=== PATIENT | male | born 1975 | race Two or more races ===

== ENCOUNTER 2024-09-22 08:03 | Inpatient (IN) | payer MEDICAID, OTHER ==
[~2024-09-22] VITALS: Ht 167.6 cm; Wt 83.0 kg
[2024-09-22 08:06] VITALS: TEMP 97.6
--- NOTE | 2024-09-22 08:54 | ED.PDOC ---
GI ASSESSMENT HPI Comments This is a 49 year old male presenting to the ED with chief complaint of abdominal pain. Patient reports that he has been experiencing abdominal pain with associated dysuria and constipation for the past 3 days. Patient relays that his last bowel movement was 3 days ago. Patient denies any nausea, vomiting, diarrhea, fever, chills, or dizziness. Chief Complaint: Abdominal Pain Time Seen by MD: 08:53 Reviewed Notes: Nurses Notes, Medications, Allergies Allergies: Coded Allergies: NO KNOWN ALLERGIES (Unverified , 09/22/24) Information Source: Patient Mode of Arrival: Ambulatory Timing: Days Duration: Since onset Prehospital treatment: None Quality: Aching Vomitus: None Stool: Impaction Severity: Moderate Recent: None Recent Hx of: None Pain Location: Diffuse Modifying Factors: Nothing Associated sign and symptoms: Constipation, Abdominal Pain Past Medical History PAST MEDICAL HISTORY: Denies Surgical History: Denies all surgeries Family History Family History: Reviewed,noncontributory to illness Social History Smoker: Non-Smoker Alcohol: Occasionally Drugs: Denies Drug Use Lives In: Home Constitutional: denies: chills, diaphoresis, fatigue, fever, malaise, sweats, weakness, others EENTM: denies: blurred vision, double vision, ear bleeding, ear discharge, ear drainage, ear pain, ear ringing, eye pain, eye redness, hearing loss, mouth pain, mouth swelling, nasal discharge, nose bleeding, nose congestion, nose pain, photophobia, tearing, throat pain, throat swelling, voice changes, others Respiratory: denies: cough, hemoptysis, orthopnea, SOB at rest, shortness of breath, SOB with excertion, stridor, wheezing, others Cardiovascular: denies: chest pain, dizzy spells, diaphoresis, Dyspnea on exertion, edema, irregular heart beat, left arm pain, lightheadedness, palpitations, PND, syncope, others Gastrointestinal: reports: abdominal pain, constipated; denies: abdomen distended, blood streaked bowels, diarrhea, dysphagia, difficulty swallowing, hematemesis, melena, nausea, poor appetite, poor fluid intake, rectal bleeding, rectal pain, vomiting, others Genitourinary: reports: dysuria; denies: burning, flank pain, frequency, hematuria, incontinence, penile discharge, penile sore, pain, testicle pain, testicle swelling, urgency, others Neurological: denies: dizziness, fainting, headache, left sided numbness, left sided weakness, numbness, paresthesia, pre-existing deficit, right sided numbness, right sided weakness, seizure, speech problems, tingling, tremors, weakness, others Musculoskeletal: denies: back pain, gout, joint pain, joint swelling, muscle pain, muscle stiffness, neck pain, others Integumetry: denies: bruises, change in color, change in hair/nails, dryness, laceration, lesions, lumps, rash, wounds, others Allergic/Immunocompromised: denies: Difficulty Healing, Frequent Infections, Hives, Itching, others Hematologic/Lymphatic: denies: anemia, blood clots, easy bleeding, easy bruising, swollen glands, others Endocrine: denies: excessive hunger, excessive sweating, excessive thirst, excessive urination, flushing, intolerance to cold, intolerance to heat, unexplained weight gain, unexplained weight loss, others Psychiatric: denies: anxiety, bipolar disorder, depression, hopeless, panic disorder, schizophrenia, sleepless, suicidal, others All Other Systems: Reviewed and Negative Physical Exam General Appearance: Moderate Distress, Normal HEENT: Normal ENT Inspection, Pharynx Normal, TMs Normal Neck: Full Range of Motion, Non-Tender, Normal, Normal Inspection Respiratory: Chest Non-Tender, Lungs Clear, No Accessory Muscle Use, No Respiratory Distress, Normal Breath Sounds Cardiovascular: No Edema, No JVD, No Murmur, No Gallop, Normal Peripheral Pulses, Regular Rate/Rhythm Breast Exam: Deferred Gastrointestinal: Distended, No Organomegaly, Non Tender, No Pulsatile Mass, Normal Bowel Sounds, Soft Genitalia: Deferred Pelvic: Deferred Rectal: Deferred Extremities: No calf tenderness, Normal capillary refill, Normal inspection, Normal range of motion, Non-tender, No pedal edema Musculoskeletal : Apperance: Normal Neurologic: Alert, resolution specialist II-XII nml as Tested, No Motor Deficits, Normal Affect, Normal Mood, No Sensory Deficits Cerebellar Function: Normal Reflexes: Normal Skin: Dry, Normal Color, Warm Peripheral Pulses: 3+ Radial (R), 3+ Radial (L) Lymphatic: No Adenopathy Was a procedure done? Was a procedure done?: No GI differential Dx Differential Diagnosis: Constipation, Diverticular disease, Esophagitis, Gastritis/PUD, Gastroenteritis X-Ray, Labs, Meds, VS Vital Signs Date Time Temp Pulse Resp B/P (MAP) Pulse Ox O2 Delivery O2 Flow Rate FiO2 09/22/24 08:06 97.6 69 15 136/92 97 97.6 Patient alert. Complaining of abdominal pain. On examination abdomen is distended. Vitals stable. Answering questions. No sign of sepsis. Explained to the patient. Continue monitoring. Time of 1ST Reevaluation: 09:52 Reevaluation 1ST: Unchanged Patient Education/Counseling: Diagnosis, Treatment Family Education/Counseling: No Family Present SEPSIS Sepsis Screen Date sepsis recognized/suspect: Sep 22, 2024 Time Sepsis recognized/suspect: 0809 Recent Procedure: No On Antibiotic Therapy: No Respiratory Rate >20: No Heart Rate >90: No Temp<36 C (96.8 F) or >38.3 C: No SBP <90 or MAP <65 mmHG: No New Acute Mental Status Change: No Is the patient on CPAP, BIPAP,: No Physician Orders Complete Blood Count (09/22/24 09:02) Basic Metabolic Panel (09/22/24 09:02) Ct Ab Pel Wo Con-No Oral Or Iv (09/22/24 09:02) Vital Signs Date Time Temp Pulse Resp B/P (MAP) Pulse Ox O2 Delivery O2 Flow Rate FiO2 09/22/24 08:06 97.6 69 15 136/92 97 97.6 Departure 1 Departure Time of Disposition: 09:43 Impression: Primary Impression: Acute abdominal pain Disposition: ADMITTED INPATIENT Admit to: Med Surg Condition: Guarded Critical Care Note Critical Care Time?: No Stability Stability form required: No Heart Score Heart Score: Heart Score Response (Comments) Value History N/A 0 EKG N/A 0 Age N/A 0 Risk Factors N/A 0 Troponin N/A 0 Total 0 I personally scribed for VALERIE TAYLOR MD ([email or web address]) on 09/22/24 at 08:54. Electronically submitted by Anthony Saini ([email or web address]). VALERIE TAYLOR MD Sep 22, 2024 08:54
[2024-09-22 10:26] LABS: Hematocrit 46.6 % (41.0-53.0); Hemoglobin 16.2 g/dL (13.5-17.5); Mean Corpuscular Hemoglobin 32.2 pg (28.0-32.0); Mean Corpuscular Volume 92.8 fL (80.0-100.0); Nucleated Red Blood Cells % 0.1 %
[2024-09-22 10:33] LABS: Chloride 104 mmol/L (98-107); Potassium 4.1 mmol/L (3.5-5.1); Sodium 143 mmol/L (136-145)
[2024-09-22 10:34] LABS: Anion Gap 10 (5-15); Carbon Dioxide 29 mmol/L (20-31)
[2024-09-22 10:35] LABS: Calcium 9.3 mg/dL (8.7-10.4)
[2024-09-22 10:39] LABS: BUN/Creatinine Ratio 16.5 (10.0-20.0); Blood Urea Nitrogen 15 mg/dL (9-23); Glucose 106 mg/dL (74-106)
[2024-09-22] MEDS ORDERED: ONDANSETRON HCL 4 MG/2 ML VIAL IV PRN (14:15)
[2024-09-22] MEDS ORDERED: DOCUSATE SOD 100 MG CAP PO PRN (14:15)
[2024-09-22] MEDS ORDERED: ACETAMINOPHEN 325 MG TAB PO PRN (14:15)
[2024-09-22] MEDS ORDERED: HYDROcodone-ACET 5/325MG TAB PO PRN (14:15)
[2024-09-22 14:45] VITALS: BP 124/85; PULSE 73; RESP 18; O2SAT 98
[2024-09-22] MEDS ORDERED: MORPHINE SULFATE INJ 2 MG/ml SYRG IV PRN (15:45)
[2024-09-22] MEDS ORDERED: NITROGLYCERIN 0.4 MG SL TAB SL PRN (15:45)
[2024-09-22 16:02] LABS: Urine Protein, UAD TRACE (Negative)
--- NOTE | 2024-09-22 16:07 | DVHHP2 ---
History of Present Illness Reason for Visit: Acute abdominal pain History of Present Illness The patient is a 49 year male who denies past medical history presented to [facility] ED with complaint of abdominal pain. Patient reports he has been experiencing acute abdominal pain, rating 7/10 numeric scale, nonradiat ing, associated with nausea, dysuria, constipation for the past 3 days, getting worse today that prompted this visit. Patient was seen and evaluated in the ED, laboratory data shows WBC 11.6, platelets 207, sodium 147, potassium 4.1, BUN 15, creatinine 0.91, glucose 106, calcium 9.3, blood pressure 136/92, heart rate 69, temperature 97.6 F, O2 saturation 97% on room air. Abdomen/pelvis CT results pending. Please see medication orders section in the computer. On my assessment, patient denies chest pain, no headache, no dizziness, no shortness a breath, no abdominal pain, nausea, or vomiting at this moment, no fever, no chills. Patient was admitted for further evaluation and medical management. Past Medical History Denies past medical history Past Surgical History Denies all surgeries Family History Reviewed, noncontributory to the management of this case. Past Social History The patient lives at home, denies smoking, alcohol or illicit drugs abuse. Review of Systems Constitutional: No: Fever, Chills, Sweats, Weakness, Malaise, Other Eyes: No: Pain, Vision change, Conjunctivae inflammation, Eyelid inflammation, Other, Redness ENT: No: Ear pain, Ear discharge, Nose pain, Nose discharge, Nose congestion, Mouth pain, Mouth swelling, Throat pain, Throat swelling, Other Respiratory: No: Cough, Dry, Shortness of breath, SOB with excertion, Wheezing, Hemoptysis, Pleuritic Pain, Sputum, Wheezing, Other Cardiovascular: No: Chest Pain, Palpitations, Orthopnea, Paroxysmal Noc. Dyspnea, Edema, Lt Headedness, Other Gastrointestinal: Nausea, Abdominal Pain; No: Vomiting, Diarrhea, Constipation, Melena, Hematochezia, Other Genitourinary: Dysuria; No Frequency, No Incontinence, No Hematuria, No Retention, No Other Musculoskeletal: No: other, neck pain, shoulder pain, arm pain, back pain, hand pain, leg pain, foot pain Skin: No: Rash, Lesions, Jaundice, Bruising, Other Neurological: No: Weakness, Numbness, Incoordination, Change in speech, Confusion, Seizures, Other Allergies: Coded Allergies: NO KNOWN ALLERGIES (Unverified , 09/22/24) Medications Current Medications Medications Dose Ordered Sig/Carly Route Start Time Stop Time Status Last Admin Dose Admin Sodium Chloride 10 ml Q8HR IV 09/22/24 22:00 Acetaminophen/ Hydrocodone Bitart 1 tab Q4HP PRN PO 09/22/24 14:15 Ondansetron HCl 4 mg Q4HP PRN IV 09/22/24 14:15 Docusate Sodium 100 mg BIDPRN PRN PO 09/22/24 14:15 Acetaminophen 650 mg Q6HP PRN PO 09/22/24 14:15 Exam Vital Signs Vital Signs Date Time Temp Pulse Resp B/P (MAP) Pulse Ox O2 Delivery O2 Flow Rate FiO2 09/22/24 14:45 73 18 124/85 (98) 98 09/22/24 08:06 97.6 97.6 General Appearance: Alert, Oriented X3, Cooperative, No acute distress HEENT: Atraumatic, PERRLA, EOMI, Mucous membr. moist/pink Respiratory: Normal air movement Cardiovascular: Regular rate, Normal S1, Normal S2, No murmurs Abdominal: Normal bowel sounds, Soft, No hepatospenomegaly, No masses, Other (Reports tenderness) Extremities: No clubbing, No cyanosis, No edema, Normal pulses, No tenderness/swelling Skin: No rashes, No breakdown, No significant lesion Neuro: Normal gait, Normal speech, Strength at 5/5 X4 ext, Normal tone, Sensation intact, Cranial nerves 3-12 NL, Reflexes 2+ Psych/Mental Status: Mental status NL, Mood NL Labs/Xrays Labs Test 09/22/24 10:07 Range/Units White Blood Count 11.6 H 4.4-10.8 10^3/uL Red Blood Count 5.03 4.5-5.90 10^6/uL Hemoglobin 16.2 13.5-17.5 g/dL Hematocrit 46.6 41.0-53.0 % Mean Corpuscular Volume 92.8 80.0-100.0 fL Mean Corpuscular Hemoglobin 32.2 H 28.0-32.0 pg Mean Corpuscular Hemoglobin Concent 34.7 32.0-36.0 g/dL Red Cell Distribution Width 13.6 11.8-14.3 % Platelet Count 207 140-450 10^3/uL Mean Platelet Volume 9.1 6.9-10.8 fL Neutrophils (%) (Auto) 76.1 37.0-80.0 % Lymphocytes (%) (Auto) 14.6 10.0-50.0 % Monocytes (%) (Auto) 6.6 0.0-12.0 % Eosinophils (%) (Auto) 2.0 0.0-7.0 % Basophils (%) (Auto) 0.7 0.0-2.0 % Neutrophils # (Auto) 8.8 H 1.6-8.6 10 ^3/uL Lymphocytes # (Auto) 1.7 0.4-5.4 10 ^3/uL Monocytes # (Auto) 0.8 0-1.3 10 ^3/uL Eosinophils # (Auto) 0.2 0-0.8 10 ^3/uL Basophils # (Auto) 0.1 0-0.2 10 ^3/uL Nucleated Red Blood Cells 0.1 % Sodium Level 143 136-145 mmol/L Potassium Level 4.1 3.5-5.1 mmol/L Chloride Level 104 98-107 mmol/L Carbon Dioxide Level 29 20-31 mmol/L Anion Gap 10 5-15 Blood Urea Nitrogen 15 9-23 mg/dL Creatinine 0.91 0.700-1.30 mg/dL Glomerular Filtration Rate Calc 104 >90 mL/min BUN/Creatinine Ratio 16.5 10.0-20.0 Serum Glucose 106 74-106 mg/dL Calcium Level 9.3 8.7-10.4 mg/dL Abdomen/pelvis CT results pending SEPSIS Sepsis Screen Date sepsis recognized/suspect: Sep 22, 2024 Time Sepsis recognized/suspect: 808 Recent Procedure: No On Antibiotic Therapy: No Respiratory Rate >20: No Heart Rate >90: No Temp<36 C (96.8 F) or >38.3 C: No SBP <90 or MAP <65 mmHG: No New Acute Mental Status Change: No Is the patient on CPAP, BIPAP,: No Physician Orders Ct Ab Pel Wo Con-No Oral Or Iv (09/22/24 09:02) Allergies (09/22/24 14:14) Code Status (09/22/24 14:14) Sodium Chloride Lock (Saline Lock Ns) (09/22/24 22:00) Oxygen Per Hour (09/22/24 14:14) Hydrocodone-Acet 5/325mg Tab ([place] 5/32 (09/22/24 14:15) Ondansetron Hcl (Zofran) (09/22/24 14:15) Docusate Sodium Capsule (Colace Capsule) (09/22/24 14:15) Complete Blood Count (09/23/24 04:00) Comprehensive Metabolic Panel (09/23/24 04:00) Condition: Serious (09/22/24 14:14) Acetaminophen Tablet (Tylenol Tablet) (09/22/24 14:15) Clear Liq Diet (09/22/24 Dinner) Bedrest With Bathroom Privileg (09/22/24 14:14) Sequential Compression Device (09/22/24 ) Admit (09/22/24 15:36) Nitroglycerin Sublingual (Ntrostat Subli (09/22/24 15:45) Morphine Sulfate Injection (09/22/24 15:45) Notify Md Of Changes From Base (09/22/24 15:36) Emergency Dysrhythmia Protocol (09/22/24 15:36) Oxygen By Nasal Cannula (09/22/24 15:36) Vital Signs Date Time Temp Pulse Resp B/P (MAP) Pulse Ox O2 Delivery O2 Flow Rate FiO2 09/22/24 14:45 73 18 124/85 (98) 98 09/22/24 08:06 97.6 69 15 136/92 97 97.6 Laboratory Tests Test 09/22/24 10:07 White Blood Count 11.6 10^3/uL (4.4-10.8) H Assessment/Plan Assessment/Plan Acute abdominal pain Leukocytosis, unspecified Plan 1. Admit to med surge unit 2. Breathing treatment 3. Pain control management 4. IV antibiotic management 5. Management of fluids and electrolytes 6. Consultation for hospitalist 7. Diagnostic test abdomen/pelvis CT 8. DVT prophylaxis-on SCDs 9. Repeat labs CBC, CMP in a.m. 10. Home medication reviewed and reconciled 11. Continue with current medical management 12. Treatment plan discussed with patient and RN. Patient verbalized understanding. Plan discussed with: Patient, Other (RN) My Orders Orders - PAM HARDING DNP Procedure Category Date Status Time Allergies PEDRO PABLO 09/22/24 In Process 14:14 Code Status CODE 09/22/24 Transmitted 14:14 Sodium Chloride Lock PHA 09/22/24 In Process (Saline Lock Ns) 22:00 Oxygen Per Hour RT 09/22/24 Transmitted 14:14 Hydrocodone-Acet PHA 09/22/24 In Process 5/325mg Tab ([place] 14:15 Ondansetron Hcl PHA 09/22/24 In Process (Zofran) 14:15 Docusate Sodium PHA 09/22/24 In Process Capsule (Colace 14:15 Complete Blood Count LAB 09/23/24 Verified 04:00 Comprehensive LAB 09/23/24 Verified Metabolic Panel 04:00 Condition: Serious PEDRO PABLO 09/22/24 In Process 14:14 Acetaminophen Tablet PHA 09/22/24 In Process (Tylenol Tablet) 14:15 Clear Liq Diet DIET 09/22/24 Transmitted Dinner Bedrest With Bathroom PEDRO PABLO 09/22/24 In Process Privileg 14:14 Sequential PEDRO PABLO 09/22/24 In Process Compression Device Admit ADMIT 09/22/24 Verified 15:[address] [facility] 09/22/24 Verified Sublingual (Ntrostat 15:[address] [facility] 09/22/24 Verified Injection 15:45 Notify Md Of Changes [facility] 09/22/24 Verified From Base 15:36 Emergency Dysrhythmia [facility] 09/22/24 Verified Protocol 15:36 Oxygen By Nasal RT 09/22/24 Verified Cannula 15:36 Problem List: (1) Acute abdominal pain (2) Leukocytosis, unspecified Date of Service: Sep 22, 2024 Billing Provider: PAM HARDING DNP Common Visit Codes: [id number] INP/OBS CARE (MOD) PAM HARDING DNP Sep 22, 2024 16:07
--- NOTE | 2024-09-22 17:27 | DVH ---
Indication: distended Technique: CT axial images of the abdomen and pelvis are obtained without contrast. Coronal and sagit fran reformats were obtained. Radiation Dose Information: CTDI volume is 12. mGy. Dose-length product is 734 mGy*cm Comparison: None FINDINGS: There is limited interpretation of the abdomen and pelvis without administration of intravenous contr ast. Lung bases demonstrate atelectasis. 4 mm left upper lobe soft tissue nodule. Adrenal glands, spleen, pancreas, liver unremarkable in shape. No CT evidence for cholelithiasis. Nonobstructing right renal calculus measuring 3 mm. Stomach partially distended. Small bowel loops normal in caliber. There is a foreign body in the rectosigmoid measuring 15.1 cm. There is associated bowel wall thicke nora. Moderate volume stool within the colon. Normal appendix. Distal rectal wall thickening and surr ounding stranding / edema. Bladder partially distended. IMPRESSION: Limited evaluation without contrast. Large foreign body in the rectum measuring 15.1 cm. Recommend surgical consultation for retrieval/ma nagement There is associated bowel wall thickening of the rectum with surrounding stranding, likely represent ing proctocolitis secondary to the underlying foreign body. 3 mm nonobstructing right renal calculus. 4 mm left upper lobe soft tissue nodule. Recommend follow-up per Fleischner society criteria. Other findings as described. Critical Result: Large 15.1 cm foreign body in the rectosigmoid colon Findings discussed with Dr Thompson, at 09/22/2024 05:24 PM at the time of interpretation, and acknowl edged receipt and understanding of the findings. Recommend surgical consultation. ..
[2024-09-22] MEDS ORDERED: cefTRIAXone 1GM/50ML D5W 50 ML IV ONE (20:00)
[2024-09-22] MEDS ORDERED: SODIUM CHLOR 0.9% PF (SALINE LOCK) 10ML VIAL/SYR IV SCH (22:00)
[2024-09-23] MEDS ORDERED: cefTRIAXone 1GM/50ML D5W 50 ML IV SCH (09:00)
== END 2024-09-22 22:00 | disposition left against medical advice (07) | DRG 254 ==
LOC: ER 08:03 → OVERFLOW 16:22
PROVIDERS: ADMIT Nurse Practitioner Family; ATTEND Nurse Practitioner Family
DX: T18.5XXA Foreign body in anus and rectum, initial encounter (principal); D72.829 Elevated white blood cell count, unspecified; K59.00 Constipation, unspecified; W44.9XXA Unspecified foreign body entering into or through a natural orifice, initial encounter; Y93.9 Activity, unspecified; Y92.9 Unspecified place or not applicable
CPT/HCPCS: 36415; 74176; 80048; 81001; 85025; G0378

== ENCOUNTER 2024-09-23 07:57 | Inpatient (IN) | payer MEDICAID ==
[~2024-09-23] VITALS: Ht 167.6 cm; Wt 82.0 kg
[2024-09-23 08:27] LABS: Hematocrit 46.6 % (41.0-53.0); Hemoglobin 15.9 g/dL (13.5-17.5); Mean Corpuscular Hemoglobin 31.9 pg (28.0-32.0); Mean Corpuscular Volume 93.1 fL (80.0-100.0); Nucleated Red Blood Cells % 0.1 %
--- NOTE | 2024-09-23 08:28 | ED.PDOC ---
GI ASSESSMENT HPI Comments 49 y/o M, presents to the ED for CC of abdominal pain. Patient states, he has been experiencing diffuse abdominal with associated symptoms of dysuria and constipation onset, x3days. Patient reports, that his LBM was x3days ago. Patient was seen at [facility] yesterday (09/23/24) for SS and was found to have 15.1 cm foreign body in his rectum and a surgical consult was requested; patient left AMA. Patient denies nausea, vomiting, diarrhea, fever, or chills. No other symptoms or modifying factors present at this time. Chief Complaint: Abdominal Pain Time Seen by MD: 08:15 Reviewed Notes: Nurses Notes, Medications, Allergies Allergies: Coded Allergies: NO KNOWN ALLERGIES (Unverified , 09/22/24) Information Source: Patient Mode of Arrival: Ambulatory Timing: Days Duration: Since onset Prehospital treatment: None Severity: Moderate Recent: None Recent Hx of: None Pain Location: Diffuse Modifying Factors: Nothing Associated sign and symptoms: Abdominal Pain Past Medical History PAST MEDICAL HISTORY: Denies Surgical History: Denies all surgeries Family History Family History: Reviewed,noncontributory to illness Social History Smoker: Non-Smoker Alcohol: Occasionally Drugs: Denies Drug Use Lives In: Home Constitutional: denies: chills, diaphoresis, fatigue, fever, malaise, sweats, weakness, others EENTM: denies: blurred vision, double vision, ear bleeding, ear discharge, ear drainage, ear pain, ear ringing, eye pain, eye redness, hearing loss, mouth pain, mouth swelling, nasal discharge, nose bleeding, nose congestion, nose pain, photophobia, tearing, throat pain, throat swelling, voice changes, others Respiratory: denies: cough, hemoptysis, orthopnea, SOB at rest, shortness of breath, SOB with excertion, stridor, wheezing, others Cardiovascular: denies: chest pain, dizzy spells, diaphoresis, Dyspnea on exertion, edema, irregular heart beat, left arm pain, lightheadedness, palpitations, PND, syncope, others Gastrointestinal: reports: abdominal pain, constipated; denies: abdomen distended, blood streaked bowels, diarrhea, dysphagia, difficulty swallowing, hematemesis, melena, nausea, poor appetite, poor fluid intake, rectal bleeding, rectal pain, vomiting, others Genitourinary: reports: dysuria; denies: burning, flank pain, frequency, hematuria, incontinence, penile discharge, penile sore, pain, testicle pain, testicle swelling, urgency, others Neurological: denies: dizziness, fainting, headache, left sided numbness, left sided weakness, numbness, paresthesia, pre-existing deficit, right sided numbness, right sided weakness, seizure, speech problems, tingling, tremors, weakness, others Musculoskeletal: denies: back pain, gout, joint pain, joint swelling, muscle pain, muscle stiffness, neck pain, others Integumetry: denies: bruises, change in color, change in hair/nails, dryness, laceration, lesions, lumps, rash, wounds, others Allergic/Immunocompromised: denies: Difficulty Healing, Frequent Infections, Hives, Itching, others Hematologic/Lymphatic: denies: anemia, blood clots, easy bleeding, easy bruising, swollen glands, others Endocrine: denies: excessive hunger, excessive sweating, excessive thirst, excessive urination, flushing, intolerance to cold, intolerance to heat, unexplained weight gain, unexplained weight loss, others Psychiatric: denies: anxiety, bipolar disorder, depression, hopeless, panic disorder, schizophrenia, sleepless, suicidal, others All Other Systems: Reviewed and Negative Physical Exam General Appearance: Moderate Distress HEENT: Normal ENT Inspection, Pharynx Normal, TMs Normal Neck: Full Range of Motion, Non-Tender, Normal, Normal Inspection Respiratory: Chest Non-Tender, Lungs Clear, No Accessory Muscle Use, No Respir atory Distress, Normal Breath Sounds Cardiovascular: No Edema, No JVD, No Murmur, No Gallop, Normal Peripheral Pulses, Regular Rate/Rhythm Breast Exam: Deferred Gastrointestinal: Diffuse Genitalia: Deferred Pelvic: Deferred Rectal: Deferred Extremities: No calf tenderness, Normal capillary refill, Normal inspection, Normal range of motion, Non-tender, No pedal edema Musculoskeletal : Apperance: Normal Neurologic: Alert, fagoter II-XII nml as Tested, No Motor Deficits, Normal Affect, Normal Mood, No Sensory Deficits Cerebellar Function: Normal Reflexes: Normal Skin: Dry, Normal Color, Warm Peripheral Pulses: 3+ Radial (R), 3+ Radial (L) Lymphatic: No Adenopathy Was a procedure done? Was a procedure done?: No GI differential Dx Differential Diagnosis: Constipation, Diverticular disease, Esophagitis, Gastritis/PUD, Gastroenteritis, Electrolyte Imbalance, Food Poisoning, Bacterial, Viral X-Ray, Labs, Meds, VS Vital Signs Date Time Temp Pulse Resp B/P (MAP) Pulse Ox O2 Delivery O2 Flow Rate FiO2 09/23/24 07:58 98.2 62 18 120/84 95 98.2 Lab Test 09/23/24 08:07 Range/Units White Blood Count 9.3 4.4-10.8 10^3/uL Red Blood Count 5.00 4.5-5.90 10^6/uL Hemoglobin 15.9 13.5-17.5 g/dL Hematocrit 46.6 41.0-53.0 % Mean Corpuscular Volume 93.1 80.0-100.0 fL Mean Corpuscular Hemoglobin 31.9 28.0-32.0 pg Mean Corpuscular Hemoglobin Concent 34.2 32.0-36.0 g/dL Red Cell Distribution Width 13.1 11.8-14.3 % Platelet Count 212 140-450 10^3/uL Mean Platelet Volume 9.2 6.9-10.8 fL Neutrophils (%) (Auto) 73.0 37.0-80.0 % Lymphocytes (%) (Auto) 17.2 10.0-50.0 % Monocytes (%) (Auto) 7.6 0.0-12.0 % Eosinophils (%) (Auto) 1.9 0.0-7.0 % Basophils (%) (Auto) 0.3 0.0-2.0 % Neutrophils # (Auto) 6.8 1.6-8.6 10 ^3/uL Lymphocytes # (Auto) 1.6 0.4-5.4 10 ^3/uL Monocytes # (Auto) 0.7 0-1.3 10 ^3/uL Eosinophils # (Auto) 0.2 0-0.8 10 ^3/uL Basophils # (Auto) 0 0-0.2 10 ^3/uL Nucleated Red Blood Cells 0.1 % Sodium Level 143 136-145 mmol/L Potassium Level 4.0 3.5-5.1 mmol/L Chloride Level 106 98-107 mmol/L Carbon Dioxide Level 27 20-31 mmol/L Anion Gap 10 5-15 Blood Urea Nitrogen 19 9-23 mg/dL Creatinine 0.90 0.700-1.30 mg/dL Glomerular Filtration Rate Calc 105 >90 mL/min BUN/Creatinine Ratio 21.1 H 10.0-20.0 Serum Glucose 104 74-106 mg/dL Calcium Level 9.1 8.7-10.4 mg/dL CT ABD PEL (09/22/24): [place] [id number] Ph: [phone] DIAGNOSTIC IMAGING Diagnostic Imaging Report : [id number] Signed PATIENT: MELANIE JOHNSON ACCT: [id number] UNIT: [id number] : 1975 LOC: OVERFLOW ROOM / BED: [facility]ER / A AGE / SEX: 49 / M ADM STATUS: ADM IN SERVICE 1 ORDERING PHYSICIAN: VALERIE TAYLOR MD PROCEDURE(s): ABPL - CT AB PEL WO CON-NO ORAL OR IV REASON: distended ORDER NUMBER(s): [id number], ACCESSION NUMBER(s): [id number] Indication: distended Technique: CT axial images of the abdomen and pelvis are obtained without contrast. Coronal and sagittal reformats were obtained. Radiation Dose Information: CTDI volume is 12. mGy. Dose-length product is 734 mGy*cm Comparison: None FINDINGS: There is limited interpretation of the abdomen and pelvis without administration of intravenous contrast. Lung bases demonstrate atelectasis. 4 mm left upper lobe soft tissue nodule. Adrenal glands, spleen, pancreas, liver unremarkable in shape. No CT evidence for cholelithiasis. Nonobstructing right renal calculus measuring 3 mm. Stomach partially distended. Small bowel loops normal in caliber. There is a foreign body in the rectosigmoid measuring 15.1 cm. There is associated bowel wall thickening. Moderate volume stool within the colon. Normal appendix. Distal rectal wall thickening and surrounding stranding / edema. Bladder partially distended. IMPRESSION: Limited evaluation without contrast. Large foreign body in the rectum measuring 15.1 cm. Recommend surgical consultation for retrieval/management There is associated bowel wall thickening of the rectum with surrounding stranding, likely representing proctocolitis secondary to the underlying foreign body. 3 mm nonobstructing right renal calculus. 4 mm left upper lobe soft tissue nodule. Recommend follow-up per Fleischner society criteria. Other findings as described. Critical Result: Large 15.1 cm foreign body in the rectosigmoid colon Findings discussed with Dr Taylor, at 09/22/2024 05:24 PM at the time of interpretation, and acknowledged receipt and understanding of the findings. Re commend surgical consultation. .. ATED BY: JUNI TORRES MD DICTATED DATE/TIME: 09/22/241725 SIGNED BY: JUNI TORRES MD SIGNED DATE/TIME: 09/22/241725 CC: Patient alert. Complaining of abdominal pain. Vitals stable. Answering questions. He was seen here yesterday for the same symptom. Left without waiting. CT scan of the abdomen reviewed from yesterday does show foreign body in the rectal sigmoid. Surgical consultation. Establish intravenous access. Was given fluids. Was given morphine. Explained to the patient. Continue to monitor. Time of 1ST Reevaluation: 08:45 Reevaluation 1ST: Unchanged Patient Education/Counseling: Diagnosis, Treatment Family Education/Counseling: No Family Present SEPSIS Sepsis Screen Date sepsis recognized/suspect: Sep 23, 2024 Time Sepsis recognized/suspect: 0758 Recent Procedure: No On Antibiotic Therapy: No Respiratory Rate >20: No Heart Rate >90: No Temp<36 C (96.8 F) or >38.3 C: No SBP <90 or MAP <65 mmHG: No New Acute Mental Status Change: No Is the patient on CPAP, BIPAP,: No Vital Signs Date Time Temp Pulse Resp B/P (MAP) Pulse Ox O2 Delivery O2 Flow Rate FiO2 09/23/24 07:58 98.2 62 18 120/84 95 98.2 Laboratory Tests Test 09/23/24 08:07 White Blood Count 9.3 10^3/uL (4.4-10.8) Departure 1 Departure Time of Disposition: 10:03 Impression: Primary Impression: Acute abdominal pain Additional Impression: Foreign body Disposition: ADMITTED INPATIENT Admit to: Med Surg Condition: Guarded Critical Care Note Critical Care Time?: Yes (90 min-critical care time only) Critical care comment: Foreign body Stability Stability form required: No Heart Score Heart Score: Heart Score Response (Comments) Value History N/A 0 EKG N/A 0 Age N/A 0 Risk Factors N/A 0 Troponin N/A 0 Total 0 I personally scribed for VALERIE TAYLOR MD ([email or web address]) on 09/23/24 at 08:27. Electronically submitted by Olena Bridges ([employer]). I personally scribed for VALERIE TAYLOR MD ([email or web address]) on 09/23/24 at 08:29. Electronically submitted by Olena Bridges ([employer]). I personally scribed for VALERIE TAYLOR MD ([email or web address]) on 09/23/24 at 08:44. Electronically submitted by Olena Bridges ([employer]). VALERIE TAYLOR MD Sep 23, 2024 08:27
[2024-09-23 08:35] LABS: Chloride 106 mmol/L (98-107); Potassium 4.0 mmol/L (3.5-5.1); Sodium 143 mmol/L (136-145)
[2024-09-23 08:36] LABS: Anion Gap 10 (5-15); Calcium 9.1 mg/dL (8.7-10.4); Carbon Dioxide 27 mmol/L (20-31)
[2024-09-23 08:41] LABS: BUN/Creatinine Ratio 21.1 (10.0-20.0); Blood Urea Nitrogen 19 mg/dL (9-23); Glucose 104 mg/dL (74-106)
[2024-09-23 10:55] LABS: INR 0.98 (0.9-1.15); Partial Thromboplastin Time 26.2 SEC (24.5-34.5); Prothrombin Time 10.4 sec (9.3-11.8)
[2024-09-23] MEDS: SODIUM CHLORIDE 0.9% 1,000 ML IV ONE ×2 (12:30→13:35)
[2024-09-23] MEDS: ONDANSETRON HCL 4 MG/2 ML VIAL IV ONE (12:30)
[2024-09-23] MEDS: MORPHINE SULFATE 4 MG/ML SYR/VIAL IV ONE (12:30)
--- NOTE | 2024-09-23 16:03 | DVH ---
CHEST RADIOGRAPH Indication: Pre-Op Technique: Single frontal view of the chest was obtained Comparison: None FINDINGS: Lines and Tubes: None Lungs: No focal consolidation. Pleura: No effusion. No pneumothorax. Cardiomediastinal contours: Borderline cardiomegaly. Bones: No acute osseous abnormality. Nonspecific tubular structure extending from the visualized righ t neck soft tissues through the right upper abdomen. IMPRESSION: No acute cardiopulmonary disease.
[2024-09-23] MEDS ORDERED: DOCUSATE SOD 100 MG CAP PO PRN (17:30)
[2024-09-23] MEDS ORDERED: ACETAMINOPHEN 325 MG TAB PO PRN (17:30)
[2024-09-23] MEDS: FOLIC ACID 1 MG in D5W 5% 50 ML INJ ONE (17:30)
[2024-09-23] MEDS ORDERED: MORPHINE SULFATE INJ 2 MG/ml SYRG IV PRN (17:30)
[2024-09-23] MEDS ORDERED: LORazepam 2MG/ML-1ML VIAL IV PRN (17:30)
[2024-09-23] MEDS ORDERED: HYDROcodone-ACET 5/325MG TAB PO PRN (17:30)
[2024-09-23] MEDS ORDERED: METOCLOPRAMIDE HCL 5MG/ml INJ 2ml VIAL IV PRN (17:30)
[2024-09-23] MEDS ORDERED: ONDANSETRON HCL 4 MG/2 ML VIAL IV PRN (17:30)
--- NOTE | 2024-09-23 17:32 | DVHINCON2 ---
Consultation - Surgical Date Seen: Sep 23, 2024 Referring Physician Referring Physician er Reason for Consultation Rectal foreign body History of Present Illness History of Present Illness 9 y/o M, presents to the ED for CC of abdominal pain. Patient states, he has been experiencing diffuse abdominal with associated symptoms of dysuria and constipation onset, x3days. Patient reports, that his LBM was x3days ago. Patient was seen at [facility] yesterday (09/23/24) for SS and was found to have 15.1 cm foreign body in his rectum patient left AMA. Patient denies nausea, vomiting, diarrhea, fever, or chills. No other symptoms or modifying factors present at this time. Past Medical/Surgical History Past Medical/Surgical History None Family and Social History Family and Social History Smokes occasionally drinks daily. Allergies and medications Allergies: Coded Allergies: NO KNOWN ALLERGIES (Unverified , 09/22/24) Review of systems Review of Systems: HEENT:Normal, CVS:Normal, RESPIRATORY:Normal, GI:Abnormal, :Normal, NEURO:Normal Examination Vital signs Vital Signs Date Time Temp Pulse Resp B/P (MAP) Pulse Ox O2 Delivery O2 Flow Rate FiO2 09/23/24 13:30 98.8 58 14 124/70 (88) 96 98.8 09/23/24 12:20 Room Air* 0 21 Medications Current Medications Medications (Trade) Dose Ordered Sig/Carly Route PRN Reason Start Time Stop Time Status Last Admin Acetaminophen/ Hydrocodone Bitart ([place] 5/325MG Tab) 1 tab Q4HP PRN PO MODERATE PAIN (4-6 PAIN SCALE) 09/23/24 17:30 UNV Ondansetron HCl (Zofran) 4 mg Q4HP PRN IV NAUSEA / VOMITING 09/23/24 17:30 UNV Docusate Sodium (Colace Capsule) 100 mg BIDPRN PRN PO FOR CONSTIPATION 09/23/24 17:30 UNV Acetaminophen (Tylenol Tablet) 650 mg Q6HP PRN PO PAIN SCALE 1-3 OR TEMP>100.4 09/23/24 17:30 UNV Morphine Sulfate 2 mg Q4HPRN PRN IV SEVERE PAIN (7-10 PAIN SCALE) 09/23/24 17:30 UNV Metoclopramide HCl (Reglan Injection) 10 mg Q6HPRN PRN IV NAUSEA / VOMITING 09/23/24 17:30 UNV Laboratory Labs Test 09/23/24 08:07 Range/Units White Blood Count 9.3 4.4-10.8 10^3/uL Red Blood Count 5.00 4.5-5.90 10^6/uL Hemoglobin 15.9 13.5-17.5 g/dL Hematocrit 46.6 41.0-53.0 % Mean Corpuscular Volume 93.1 80.0-100.0 fL Mean Corpuscular Hemoglobin 31.9 28.0-32.0 pg Mean Corpuscular Hemoglobin Concent 34.2 32.0-36.0 g/dL Red Cell Distribution Width 13.1 11.8-14.3 % Platelet Count 212 140-450 10^3/uL Mean Platelet Volume 9.2 6.9-10.8 fL Neutrophils (%) (Auto) 73.0 37.0-80.0 % Lymphocytes (%) (Auto) 17.2 10.0-50.0 % Monocytes (%) (Auto) 7.6 0.0-12.0 % Eosinophils (%) (Auto) 1.9 0.0-7.0 % Basophils (%) (Auto) 0.3 0.0-2.0 % Neutrophils # (Auto) 6.8 1.6-8.6 10 ^3/uL Lymphocytes # (Auto) 1.6 0.4-5.4 10 ^3/uL Monocytes # (Auto) 0.7 0-1.3 10 ^3/uL Eosinophils # (Auto) 0.2 0-0.8 10 ^3/uL Basophils # (Auto) 0 0-0.2 10 ^3/uL Nucleated Red Blood Cells 0.1 % Prothrombin Time 10.4 9.3-11.8 sec Prothrombin Time INR 0.98 0.9-1.15 Activated Partial Thromboplast Time 26.2 24.5-34.5 SEC Sodium Level 143 136-145 mmol/L Potassium Level 4.0 3.5-5.1 mmol/L Chloride Level 106 98-107 mmol/L Carbon Dioxide Level 27 20-31 mmol/L Anion Gap 10 5-15 Blood Urea Nitrogen 19 9-23 mg/dL Creatinine 0.90 0.700-1.30 mg/dL Glomerular Filtration Rate Calc 105 >90 mL/min BUN/Creatinine Ratio 21.1 H 10.0-20.0 Serum Glucose 104 74-106 mg/dL Calcium Level 9.1 8.7-10.4 mg/dL Indication: distended Technique: CT axial images of the abdomen and pelvis are obtained without contrast. Coronal and sagittal reformats were obtained. Radiation Dose Information: CTDI volume is 12. mGy. Dose-length product is 734 mGy*cm Comparison: None FINDINGS: There is limited interpretation of the abdomen and pelvis without administration of intravenous contrast. Lung bases demonstrate atelectasis. 4 mm left upper lobe soft tissue nodule. Adrenal glands, spleen, pancreas, liver unremarkable in shape. No CT evidence for cholelithiasis. Nonobstructing right renal calculus measuring 3 mm. Stomach partially distended. Small bowel loops normal in caliber. There is a foreign body in the rectosigmoid measuring 15.1 cm. There is associated bowel wall thickening. Moderate volume stool within the colon. Normal appendix. Distal rectal wall thickening and surrounding stranding / edema. Bladder partially distended. IMPRESSION: Limited evaluation without contrast. Large foreign body in the rectum measuring 15.1 cm. Recommend surgical consultation for retrieval/management There is associated bowel wall thickening of the rectum with surrounding stranding, likely representing proctocolitis secondary to the underlying foreign body. 3 mm nonobstructing right renal calculus. 4 mm left upper lobe soft tissue nodule. Recommend follow-up per Fleischner soc iety criteria. Other findings as described. Critical Result: Large 15.1 cm foreign body in the rectosigmoid colon Examination: GENERAL:Normal, HEENT:Normal, NECK:Normal, LUNGS:Normal, CVS:Normal, ABDOMEN:Normal, ABDOMEN:Abnormal (Abdominal discomfort suprapubic), MSK:Normal, SKIN:Normal, NEURO:Normal, :Normal Problem List/Assessment/Plan Problems: (1) Foreign body anus/rectum Assessment and Plan Foreign body in the rectum. We will require exam under anesthesia with extraction. Possible exploratory laparotomy. Patient understands the risks benefits of the procedure and is willing to proceed. We will plan on performing today. Plan discussed with Plan discussed with: Patient Visit Coding Surgery Date of Service if different f: Sep 23, 2024 Billing Provider: TRAY KAMARA Jr., MD Surgery Visit Codes: 53225 - INP CONSULT <80 MIN TRAY KAMARA Jr., MD Sep 23, 2024 17:32
--- NOTE | 2024-09-23 17:40 | DVHHP2 ---
History of Present Illness Reason for Visit: Abdominal pain History of Present Illness Antione Gamble is a 49-year-old male with no significant past medical history who came to the ER for abdominal pain. Patient states him and his were having sexual relations on Sunday09/20/2024, where she put a marker in his rectum and was unable to get it out. He states he has tried at home to get it out and has been unsuccessful. He states he can barely fill it with his finger when he tries. He has also tried to have a bowel movement to get it to pass without success. He came to the hospital yesterday, but left AMA after waiting for hours. He has returned today due to the pain and not being able to remove i t. Past Surgical History: None Family History: None Smoke: No ALCOHOL: heavy (3-4 beers/day) Drugs: Marijuana Lives: with Family Domestic Violence: Neg Review of Systems Constitutional: No: Fever, Chills, Sweats, Weakness, Malaise, Other Eyes: No: Pain, Vision change, Conjunctivae inflammation, Eyelid inflammation, Other, Redness ENT: No: Ear pain, Ear discharge, Nose pain, Nose discharge, Nose congestion, Mouth pain, Mouth swelling, Throat pain, Throat swelling, Other Respiratory: No: Cough, Dry, Shortness of breath, SOB with excertion, Wheezing, Hemoptysis, Pleuritic Pain, Sputum, Wheezing, Other Cardiovascular: No: Chest Pain, Palpitations, Orthopnea, Paroxysmal Noc. Dyspnea, Edema, Lt Headedness, Other Gastrointestinal: Abdominal Pain, Constipation, Other (Foreign body anus/rectum, ); No: Nausea, Vomiting, Diarrhea, Melena, Hematochezia Genitourinary: No Dysuria, No Frequency, No Incontinence, No Hematuria, No Retention, No Other Musculoskeletal: No: other, neck pain, shoulder pain, arm pain, back pain, hand pain, leg pain, foot pain Skin: No: Rash, Lesions, Jaundice, Bruising, Other Neurological: No: Weakness, Numbness, Incoordination, Change in speech, Confusion, Seizures, Other Allergies: Coded Allergies: NO KNOWN ALLERGIES (Unverified , 09/22/24) Exam Vital Signs Vital Signs Date Time Temp Pulse Resp B/P (MAP) Pulse Ox O2 Delivery O2 Flow Rate FiO2 09/23/24 13:30 98.8 58 14 124/70 (88) 96 98.8 09/23/24 12:20 Room Air* 0 21 General Appearance: Alert, Oriented X3, Cooperative, moderate distress HEENT: Atraumatic, PERRLA Respiratory: Clear to auscultation, Normal air movement Cardiovascular: Regular rate, Normal S1, Normal S2, No murmurs Abdominal: Normal bowel sounds, Soft, No hepatospenomegaly, Other (rectum pain) Extremities: No clubbing, No cyanosis, No edema, Normal pulses, No tenderness/swelling Skin: No rashes, No breakdown, No significant lesion Neuro: Normal gait, Normal speech, Strength at 5/5 X4 ext, Normal tone Psych/Mental Status: Mental status NL, Mood NL Labs/Xrays Labs Test 09/23/24 08:07 Range/Units White Blood Count 9.3 4.4-10.8 10^3/uL Red Blood Count 5.00 4.5-5.90 10^6/uL Hemoglobin 15.9 13.5-17.5 g/dL Hematocrit 46.6 41.0-53.0 % Mean Corpuscular Volume 93.1 80.0-100.0 fL Mean Corpuscular Hemoglobin 31.9 28.0-32.0 pg Mean Corpuscular Hemoglobin Concent 34.2 32.0-36.0 g/dL Red Cell Distribution Width 13.1 11.8-14.3 % Platelet Count 212 140-450 10^3/uL Mean Platelet Volume 9.2 6.9-10.8 fL Neutrophils (%) (Auto) 73.0 37.0-80.0 % Lymphocytes (%) (Auto) 17.2 10.0-50.0 % Monocytes (%) (Auto) 7.6 0.0-12.0 % Eosinophils (%) (Auto) 1.9 0.0-7.0 % Basophils (%) (Auto) 0.3 0.0-2.0 % Neutrophils # (Auto) 6.8 1.6-8.6 10 ^3/uL Lymphocytes # (Auto) 1.6 0.4-5.4 10 ^3/uL Monocytes # (Auto) 0.7 0-1.3 10 ^3/uL Eosinophils # (Auto) 0.2 0-0.8 10 ^3/uL Basophils # (Auto) 0 0-0.2 10 ^3/uL Nucleated Red Blood Cells 0.1 % Prothrombin Time 10.4 9.3-11.8 sec Prothrombin Time INR 0.98 0.9-1.15 Activated Partial Thromboplast Time 26.2 24.5-34.5 SEC Sodium Level 143 136-145 mmol/L Potassium Level 4.0 3.5-5.1 mmol/L Chloride Level 106 98-107 mmol/L Carbon Dioxide Level 27 20-31 mmol/L Anion Gap 10 5-15 Blood Urea Nitrogen 19 9-23 mg/dL Creatinine 0.90 0.700-1.30 mg/dL Glomerular Filtration Rate Calc 105 >90 mL/min BUN/Creatinine Ratio 21.1 H 10.0-20.0 Serum Glucose 104 74-106 mg/dL Calcium Level 9.1 8.7-10.4 mg/dL CHEST RADIOGRAPH FINDINGS: Lines and Tubes: None Lungs: No focal consolidation. Pleura: No effusion. No pneumothorax. Cardiomediastinal contours: Borderline cardiomegaly. Bones: No acute osseous abnormality. Nonspecific tubular structure extending from the visualized right neck soft tissues through the right upper abdomen. IMPRESSION: No acute cardiopulmonary disease. Technique: CT axial images of the abdomen and pelvis are obtained without contrast. FINDINGS: There is limited interpretation of the abdomen and pelvis without administration of intravenous contrast. Lung bases demonstrate atelectasis. 4 mm left upper lobe soft tissue nodule. Adrenal glands, spleen, pancreas, liver unremarkable in shape. No CT evidence for cholelithiasis. Nonobstructing right renal calculus measuring 3 mm. Stomach partially distended. Small bowel loops normal in caliber. There is a foreign body in the rectosigmoid measuring 15.1 cm. There is associated bowel wall thickening. Moderate volume stool within the colon. Normal appendix. Distal rectal wall thickening and surrounding stranding / edema. Bladder partially distended. IMPRESSION: Limited evaluation without contrast. Large foreign body in the rectum measuring 15.1 cm. Recommend surgical consultation for retrieval/management There is associated bowel wall thickening of the rectum with surrounding stranding, likely representing proctocolitis secondary to the underlying foreign body. 3 mm nonobstructing right renal calculus. 4 mm left upper lobe soft tissue nodule. Recommend follow-up per Fleischner society criteria. Other findings as described. Critical Result: Large 15.1 cm foreign body in the rectosigmoid colon SEPSIS Sepsis Screen Date sepsis recognized/suspect: Sep 23, 2024 Time Sepsis recognized/suspect: 0758 Recent Procedure: No On Antibiotic Therapy: No Respiratory Rate >20: No Heart Rate >90: No Temp<36 C (96.8 F) or >38.3 C: No SBP <90 or MAP <65 mmHG: No New Acute Mental Status Change: No Is the patient on CPAP, BIPAP,: No Physician Orders Chest Xray 1 View (09/23/24 15:29) Admit (09/23/24 17:18) Code Status (09/23/24 17:18) Hydrocodone-Acet 5/325mg Tab ([place] (09/23/24 17:30) Ondansetron Hcl (Zofran) (09/23/24 17:30) Docusate Sodium Capsule (Colace Capsule) (09/23/24 17:30) Complete Blood Count (09/24/24 04:00) Comprehensive Metabolic Panel (09/24/24 04:00) Condition: Serious (09/23/24 17:18) Acetaminophen Tablet (Tylenol Tablet) (09/23/24 17:30) Morphine Sulfate Injection (09/23/24 17:30) Metoclopramide Injection (Reglan Injecti (09/23/24 17:30) * Surgical Consult (09/23/24 17:18) Vital Signs Date Time Temp Pulse Resp B/P (MAP) Pulse Ox O2 Delivery O2 Flow Rate FiO2 09/23/24 13:30 98.8 58 14 124/70 (88) 96 98.8 09/23/24 13:00 58 14 124/70 09/23/24 12:31 98.8 77 14 128/80 (96) 96 98.8 09/23/24 12:30 77 16 128/80 09/23/24 12:20 Room Air* 0 21 Laboratory Tests Test 09/23/24 08:07 White Blood Count 9.3 10^3/uL (4.4-10.8) Medications Medications Dose Ordered Sig/Carly Route Start Time Stop Time Status Last Admin Dose Admin Morphine Sulfate 4 mg ONCE ONCE IV 09/23/24 10:15 09/23/24 10:16 DC 09/23/24 12:30 4 MG Ondansetron HCl 4 mg ONCE ONCE IV 09/23/24 10:15 09/23/24 10:16 DC 09/23/24 12:30 4 MG Sodium Chloride 1,000 ml @ 150 mls/hr Q6H40M ONCE IV 09/23/24 10:15 09/23/24 16:54 DC 09/23/24 13:35 150 MLS/HR Sodium Chloride 1,000 ml @ 1,000 mls/hr Q1H ONCE IV 09/23/24 10:15 09/23/24 11:14 DC 09/23/24 12:30 1,000 MLS/HR Assessment/Plan Assessment/Plan Assessment: Foreign body anus/rectum, Daily ETOH, Plan: Admit to Med-Surg, Surgical consult, IV hydration, NPO, Supplemental vitamins for ETOH dependance, PRN Ativan for possible ETOH withdrawal, Plan discussed with: Patient My Orders Orders - MELVIN DUMONTP Procedure Category Date Status Time Chest Xray 1 View XY 09/23/24 Resulted 15:29 Admit ADMIT 09/23/24 Verified 17:18 Code Status CODE 09/23/24 Verified 17:18 Hydrocodone-Acet PHA 09/23/24 Verified 5/325mg Tab ([place] 17:30 Ondansetron Hcl PHA 09/23/24 Verified (Zofran) 17:30 Docusate Sodium PHA 09/23/24 Verified Capsule (Colace 17:30 Complete Blood Count LAB 09/24/24 Verified 04:00 Comprehensive LAB 09/24/24 Verified Metabolic Panel 04:00 Condition: Serious PEDRO PABLO 09/23/24 Verified 17:18 Acetaminophen Tablet PHA 09/23/24 Verified (Tylenol Tablet) 17:30 Morphine Sulfate PHA 09/23/24 Verified Injection 17:30 Metoclopramide PHA 09/23/24 Verified Injection (Reglan 17:30 * Surgical Consult CONS 09/23/24 Verified 17:18 Date of Service: Sep 23, 2024 Billing Provider: MELVIN DUMONT Common Visit Codes: [id number] INP/OBS CARE (MOD) MELVIN DUMONT Sep 23, 2024 17:40
[2024-09-23] MEDS: ceFAZolin 2 GM/D5W50ml 50 ML IV ONE (17:53)
[2024-09-23] MEDS: THIAMINE 100mg/ml INJ (200mg/2ml VIAL) IV ONE (18:09)
--- NOTE | 2024-09-23 19:53 | DVHDS2 ---
ASSESSMENT ASSESSMENT Hospital Course Patient was scheduled today for urgent foreign body removal however the patient drank a can of soda 1 hour prior to scheduled procedure. Patient currently is comfortable vital signs stable patient will be rescheduled for tomorrow we will have GI evaluate for possible endoscopy colonoscopy extraction. Assessment TRAY KAMARA Jr., MD Sep 23, 2024 19:53
[2024-09-23 21:06] VITALS: BP 134/74; PULSE 64; RESP 16; RESP 17; O2SAT 96; O2SAT 97
[2024-09-23] MEDS: SODIUM CHLORIDE 0.9% 1,000 ML IV SCH (22:55)
[2024-09-24] VITALS (9 sets, daily range): BP systolic 116–134; BP diastolic 65–84; PULSE 54–77; RESP 12–19; TEMP 97.4–98.5; O2SAT 94–99
[2024-09-24 06:58] LABS: Hematocrit 42.4 % (41.0-53.0); Hemoglobin 14.9 g/dL (13.5-17.5); Mean Corpuscular Hemoglobin 32.5 pg (28.0-32.0); Mean Corpuscular Volume 92.5 fL (80.0-100.0); Nucleated Red Blood Cells % 0.0 %
[2024-09-24 07:40] LABS: Alanine Aminotransferase 15 U/L (7-40); Alkaline Phosphatase 76 U/L (46-116); Anion Gap 9 (5-15); BUN/Creatinine Ratio 17.9 (10.0-20.0); Blood Urea Nitrogen 14 mg/dL (9-23); Calcium 8.9 mg/dL (8.7-10.4); Carbon Dioxide 27 mmol/L (20-31); Chloride 105 mmol/L (98-107); Glucose 85 mg/dL (74-106); Potassium 3.7 mmol/L (3.5-5.1); Sodium 141 mmol/L (136-145); Total Protein 6.4 g/dL (5.7-8.2)
[2024-09-24 07:41] LABS: Albumin 4.2 g/dL (3.2-4.8)
[2024-09-24 07:42] LABS: Bilirubin, Total 0.9 mg/dL (0.2-1.0)
--- NOTE | 2024-09-24 09:50 | DVHINCON2 ---
Date of service: Sep 24, 2024 Family History: Patient reports no known family medical history. Allergies: Coded Allergies: NO KNOWN ALLERGIES (Unverified , 09/22/24) Home Meds No Active Prescriptions or Reported Meds Current Medications Current Medications Medications (Trade) Dose Ordered Sig/Carly Route PRN Reason Start Time Stop Time Status Last Admin Acetaminophen/ Hydrocodone Bitart ([place] 5/325MG Tab) 1 tab Q4HP PRN PO MODERATE PAIN (4-6 PAIN SCALE) 09/23/24 17:30 Ondansetron HCl (Zofran) 4 mg Q4HP PRN IV NAUSEA / VOMITING 09/23/24 17:30 Docusate Sodium (Colace Capsule) 100 mg BIDPRN PRN PO FOR CONSTIPATION 09/23/24 17:30 Acetaminophen (Tylenol Tablet) 650 mg Q6HP PRN PO PAIN SCALE 1-3 OR TEMP>100.4 09/23/24 17:30 Morphine Sulfate 2 mg Q4HPRN PRN IV SEVERE PAIN (7-10 PAIN SCALE) 09/23/24 17:30 Metoclopramide HCl (Reglan Injection) 10 mg Q6HPRN PRN IV NAUSEA / VOMITING 09/23/24 17:30 Thiamine HCl 100 mg DAILY PO 09/24/24 10:00 Folic Acid 1 mg DAILY PO 09/24/24 10:00 Multivitamins (Mvi Tab) 1 tab DAILY PO 09/24/24 10:00 Lorazepam (Ativan Inj) 1 mg Q2HP PRN IV ALCOHOL WITHDRAWAL SYMPTOMS 09/23/24 17:30 Sodium Chloride 1,000 ml @ 100 mls/hr Q10H IV 09/23/24 17:45 09/23/24 22:55 Vital Signs Vital Signs Date Time Temp Pulse Resp B/P (MAP) Pulse Ox O2 Delivery O2 Flow Rate FiO2 09/24/24 05:00 98.0 54 16 118/75 (89) 97 98.0 09/23/24 23:40 Room Air* 0 21 Labs/Diagnostic Data Labs Test 09/24/24 05:51 09/23/24 08:07 Range/Units White Blood Count 8.8 4.4-10.8 10^3/uL Red Blood Count 4.58 4.5-5.90 10^6/uL Hemoglobin 14.9 13.5-17.5 g/dL Hematocrit 42.4 41.0-53.0 % Mean Corpuscular Volume 92.5 80.0-100.0 fL Mean Corpuscular Hemoglobin 32.5 H 28.0-32.0 pg Mean Corpuscular Hemoglobin Concent 35.1 32.0-36.0 g/dL Red Cell Distribution Width 13.0 11.8-14.3 % Platelet Count 177 140-450 10^3/uL Mean Platelet Volume 9.1 6.9-10.8 fL Neutrophils (%) (Auto) 68.4 37.0-80.0 % Lymphocytes (%) (Auto) 21.1 10.0-50.0 % Monocytes (%) (Auto) 7.7 0.0-12.0 % Eosinophils (%) (Auto) 2.4 0.0-7.0 % Basophils (%) (Auto) 0.4 0.0-2.0 % Neutrophils # (Auto) 6.0 1.6-8.6 10 ^3/uL Lymphocytes # (Auto) 1.8 0.4-5.4 10 ^3/uL Monocytes # (Auto) 0.7 0-1.3 10 ^3/uL Eosinophils # (Auto) 0.2 0-0.8 10 ^3/uL Basophils # (Auto) 0 0-0.2 10 ^3/uL Nucleated Red Blood Cells 0.0 % Sodium Level 141 136-145 mmol/L Potassium Level 3.7 3.5-5.1 mmol/L Chloride Level 105 98-107 mmol/L Carbon Dioxide Level 27 20-31 mmol/L Anion Gap 9 5-15 Blood Urea Nitrogen 14 9-23 mg/dL Creatinine 0.78 0.700-1.30 mg/dL Glomerular Filtration Rate Calc 110 >90 mL/min BUN/Creatinine Ratio 17.9 10.0-20.0 Serum Glucose 85 74-106 mg/dL Calcium Level 8.9 8.7-10.4 mg/dL Total Bilirubin 0.9 0.2-1.0 mg/dL Aspartate Amino Transferase (AST) 15 13-40 U/L Alanine Aminotransferase (ALT) 15 7-40 U/L Alkaline Phosphatase 76 46-116 U/L Total Protein 6.4 5.7-8.2 g/dL Albumin 4.2 3.2-4.8 g/dL Prothrombin Time 10.4 9.3-11.8 sec Prothrombin Time INR 0.98 0.9-1.15 Activated Partial Thromboplast Time 26.2 24.5-34.5 SEC Assessment [id number] AFEBRILE VSS ABDS SOFT TENDER RECTAL EXAM RECTAL FB REMOVE RECTAL FB UNDER ANESTHESIA POSSIBLE E LAP BOWEL RESECTION POSSIBLE COLOSTOMY Plan discussed with: Patient SUGAR STEWARD MD Sep 24, 2024 09:50
[2024-09-24] MEDS: FOLIC ACID 1 MG TAB PO SCH (10:00)
[2024-09-24] MEDS: MULTIPLE VITAMIN TAB PO SCH (10:00)
[2024-09-24] MEDS: THIAMINE HCL 100 MG TAB PO SCH (10:00)
--- NOTE | 2024-09-24 11:31 | DVHINCON2 ---
DATE OF CONSULTATION: 09/24/2024 HISTORY OF PRESENT ILLNESS: This patient is 49 years old coming in with non-resolution of removal of a rectal foreign body that happened 3 or 4 days ago and he has not had a bowel activity for the past those days and no nausea or vomiting. No hematochezia or melena. No bleeding per rectum. PAST MEDICAL HISTORY: No diabetes or hypertension. PAST SURGICAL HISTORY: Not available. PHYSICAL EXAMINATION: VITAL SIGNS: Afebrile. Stable signs. HEENT: With no evidence of pallor, cyanosis, or jaundice. NECK: Supple and nontender with no thyromegaly or lymphadenopathy. CHEST AND LUNGS: Clear. HEART: Within normal limits. ABDOMEN: Soft, minimally tender. No rebound. EXTREMITIES: Unremarkable. NEUROLOGIC: Intact. RECTAL: Reveals a rectal foreign body. PLAN: The plan would be to consider removal of the rectal foreign body under anesthesia, possible exploratory laparotomy, bowel resection, colostomy, and benefits were discussed and a consent obtained. MD YEIMY Byrd/ALMA DELIA TID: [id number] RECEIPT: [id number] cc: Fariba Mcelroy
--- NOTE | 2024-09-24 13:51 | DVHINCON2 ---
Date of service: Sep 24, [address] Atkinson Reason for Consultation Foreign body in rectum History of Present Illness Antione Gamble is a 49-year-old male with no significant past medical history who came to the ER for abdominal pain. Patient states him and his were hathaway ving sexual relations on Sunday09/20/2024, where she put a marker in his rectum and was unable to get it out. He states he has tried at home to get it out and has been unsuccessful. He states he can barely fill it with his finger when he tries. He has also tried to have a bowel movement to get it to pass without success. He came to the hospital yesterday, but left AMA after waiting for hours. He returned yesterday due to the pain and not being able to remove it. Past Medical History Alcohol abuse Obesity Family History: Patient reports no known family medical history. Social History ALCOHOL: heavy (3-4 beers/day) Drugs: Marijuana Lives: with Family Allergies: Coded Allergies: NO KNOWN ALLERGIES (Unverified , 09/22/24) Home Meds No Active Prescriptions or Reported Meds Current Medications Current Medications Medications (Trade) Dose Ordered Sig/Carly Route PRN Reason Start Time Stop Time Status Last Admin Acetaminophen/ Hydrocodone Bitart ([place] 5/325MG Tab) 1 tab Q4HP PRN PO MODERATE PAIN (4-6 PAIN SCALE) 09/23/24 17:30 Ondansetron HCl (Zofran) 4 mg Q4HP PRN IV NAUSEA / VOMITING 09/23/24 17:30 Docusate Sodium (Colace Capsule) 100 mg BIDPRN PRN PO FOR CONSTIPATION 09/23/24 17:30 Acetaminophen (Tylenol Tablet) 650 mg Q6HP PRN PO PAIN SCALE 1-3 OR TEMP>100.4 09/23/24 17:30 Morphine Sulfate 2 mg Q4HPRN PRN IV SEVERE PAIN (7-10 PAIN SCALE) 09/23/24 17:30 Metoclopramide HCl (Reglan Injection) 10 mg Q6HPRN PRN IV NAUSEA / VOMITING 09/23/24 17:30 Thiamine HCl 100 mg DAILY PO 09/24/24 10:00 Folic Acid 1 mg DAILY PO 09/24/24 10:00 Multivitamins (Mvi Tab) 1 tab DAILY PO 09/24/24 10:00 Lorazepam (Ativan Inj) 1 mg Q2HP PRN IV ALCOHOL WITHDRAWAL SYMPTOMS 09/23/24 17:30 Sodium Chloride 1,000 ml @ 100 mls/hr Q10H IV 09/23/24 17:45 09/23/24 22:55 Vital Signs Vital Signs Date Time Temp Pulse Resp B/P (MAP) Pulse Ox O2 Delivery O2 Flow Rate FiO2 09/24/24 13:00 98.5 56 18 122/75 (91) 94 98.5 09/23/24 23:40 Room Air* 0 21 Physical Exam VITAL SIGNS: Afebrile. Stable signs. HEENT: With no evidence of pallor, cyanosis, or jaundice. NECK: Supple and nontender with no thyromegaly or lymphadenopathy. CHEST AND LUNGS: Clear. HEART: Within normal limits. ABDOMEN: Soft, minimally tender. No rebound. EXTREMITIES: Unremarkable. NEUROLOGIC: Intact. RECTAL: Reveals a rectal foreign body. Labs/Diagnostic Data Labs Test 09/24/24 05:51 09/23/24 08:07 Range/Units White Blood Count 8.8 4.4-10.8 10^3/uL Red Blood Count 4.58 4.5-5.90 10^6/uL Hemoglobin 14.9 13.5-17.5 g/dL Hematocrit 42.4 41.0-53.0 % Mean Corpuscular Volume 92.5 80.0-100.0 fL Mean Corpuscular Hemoglobin 32.5 H 28.0-32.0 pg Mean Corpuscular Hemoglobin Concent 35.1 32.0-36.0 g/dL Red Cell Distribution Width 13.0 11.8-14.3 % Platelet Count 177 140-450 10^3/uL Mean Platelet Volume 9.1 6.9-10.8 fL Neutrophils (%) (Auto) 68.4 37.0-80.0 % Lymphocytes (%) (Auto) 21.1 10.0-50.0 % Monocytes (%) (Auto) 7.7 0.0-12.0 % Eosinophils (%) (Auto) 2.4 0.0-7.0 % Basophils (%) (Auto) 0.4 0.0-2.0 % Neutrophils # (Auto) 6.0 1.6-8.6 10 ^3/uL Lymphocytes # (Auto) 1.8 0.4-5.4 10 ^3/uL Monocytes # (Auto) 0.7 0-1.3 10 ^3/uL Eosinophils # (Auto) 0.2 0-0.8 10 ^3/uL Basophils # (Auto) 0 0-0.2 10 ^3/uL Nucleated Red Blood Cells 0.0 % Sodium Level 141 136-145 mmol/L Potassium Level 3.7 3.5-5.1 mmol/L Chloride Level 105 98-107 mmol/L Carbon Dioxide Level 27 20-31 mmol/L Anion Gap 9 5-15 Blood Urea Nitrogen 14 9-23 mg/dL Creatinine 0.78 0.700-1.30 mg/dL Glomerular Filtration Rate Calc 110 >90 mL/min BUN/Creatinine Ratio 17.9 10.0-20.0 Serum Glucose 85 74-106 mg/dL Calcium Level 8.9 8.7-10.4 mg/dL Total Bilirubin 0.9 0.2-1.0 mg/dL Aspartate Amino Transferase (AST) 15 13-40 U/L Alanine Aminotransferase (ALT) 15 7-40 U/L Alkaline Phosphatase 76 46-116 U/L Total Protein 6.4 5.7-8.2 g/dL Albumin 4.2 3.2-4.8 g/dL Prothrombin Time 10.4 9.3-11.8 sec Prothrombin Time INR 0.98 0.9-1.15 Activated Partial Thromboplast Time 26.2 24.5-34.[address] SCan IMPRESSION: Limited evaluation without contrast. Large foreign body in the rectum measuring 15.1 cm. Recommend surgical consultation for retrieval/management There is associated bowel wall thickening of the rectum with surrounding stranding, likely representing proctocolitis secondary to the underlying foreign body. 3 mm nonobstructing right renal calculus. 4 mm left upper lobe soft tissue nodule. Recommend follow-up per Fleischner society criteria. Other findings as described. Critical Result: Large 15.1 cm foreign body in the rectosigmoid colon Problems(with codes): (1) Foreign body anus/rectum (2) Acute abdominal pain (3) Leukocytosis, unspecified Plan/Recommendation Plan The foreign body in the rectosigmoid appears to be too large to be removed via a GI colonoscope I have recommended surgical consult and requested Dr Sultana who is on-call do attempt to remove this in the OR The recommendations will be made after the above Patient will likely need to be maintained on stool softeners and we will discuss elective screening colonoscopy as an outpatient once medically stabilized Plan discussed with: Patient, Other (Dr Mihcaela Sultana) INDIO SULTANA MD Sep 24, 2024 13:51
--- NOTE | 2024-09-24 14:18 | DVHPN2 ---
Subjective 49-year-old male was admitted here because of a rectal foreign body that was not possible to be removed and therefore he was seen by General surgery to be removed under anesthesia No other complaints Changes from previous H/P or p: Changes Eyes: No Pain, No Vision change, No Conjunctivae inflammation, No Eyelid inflammation, No Other, No Redness ENT: No Ear pain, No Ear discharge, No Nose pain, No Nose discharge, No Nose congestion, No Mouth pain, No Mouth swelling, No Throat pain, No Throat swelling, No Other Cardiovascular: No Chest Pain, No Palpitations, No Orthopnea, No Paroxysmal Noc. Dyspnea, No Edema, No Lt Headedness, No Other Respiratory: No Cough, No Dry, No Shortness of breath, No SOB with excertion, No Wheezing, No Hemoptysis, No Pleuritic Pain, No Sputum, No Other Gastrointestinal: No Nausea, No Vomiting; Abdominal Pain; No Diarrhea; C onstipation; No Melena, No Hematochezia; Other (Foreign body anus/rectum, ) Genitourinary: No Dysuria, No Frequency, No Incontinence, No Hematuria, No Retention, No Other Musculoskeletal: No other, No neck pain, No shoulder pain, No arm pain, No back pain, No hand pain, No leg pain, No foot pain Skin: No Rash, No Lesions, No Jaundice, No Bruising, No Other Objective Vitals Vital Signs Date Time Temp Pulse Resp B/P (MAP) Pulse Ox O2 Delivery O2 Flow Rate FiO2 09/24/24 13:00 98.5 56 18 122/75 (91) 94 98.5 09/23/24 23:40 Room Air* 0 21 Intake/Output Intake and Output 09/24/24 07:00 Intake Total 1000 ml Balance 1000 ml Intake Oral 0 ml IV Total 1000 ml # Voids 4 General Appearance: Alert, Oriented X3, Cooperative, No acute distress Lungs: Clear to auscultation, Normal air movement Cardiovascular: Regular rate, Normal S1 Abdomen: Normal bowel sounds, Soft, No tenderness Extremities: No edema Medications Current Medications Medications Dose Ordered Sig/Carly Route Start Time Stop Time Status Last Admin Dose Admin Acetaminophen/ Hydrocodone Bitart 1 tab Q4HP PRN PO 09/23/24 17:30 Ondansetron HCl 4 mg Q4HP PRN IV 09/23/24 17:30 Docusate Sodium 100 mg BIDPRN PRN PO 09/23/24 17:30 Acetaminophen 650 mg Q6HP PRN PO 09/23/24 17:30 Morphine Sulfate 2 mg Q4HPRN PRN IV 09/23/24 17:30 Metoclopramide HCl 10 mg Q6HPRN PRN IV 09/23/24 17:30 Thiamine HCl 100 mg DAILY PO 09/24/24 10:00 Folic Acid 1 mg DAILY PO 09/24/24 10:00 Multivitamins 1 tab DAILY PO 09/24/24 10:00 Lorazepam 1 mg Q2HP PRN IV 09/23/24 17:30 Sodium Chloride 1,000 ml @ 100 mls/hr Q10H IV 09/23/24 17:45 09/23/24 22:55 100 MLS/HR Laboratory Results Laboratory Tests 09/24/24 05:51 Chemistry Test 09/24/24 05:51 Albumin 4.2 g/dL (3.2-4.8) Calcium Level 8.9 mg/dL (8.7-10.4) Total Protein 6.4 g/dL (5.7-8.2) LFT Test 09/24/24 05:51 Alanine Aminotransferase (ALT) 15 U/L (7-40) Alkaline Phosphatase 76 U/L (46-116) Aspartate Amino Transferase (AST) 15 U/L (13-40) Total Bilirubin 0.9 mg/dL (0.2-1.0) Assessment/Plan Assessment/Plan Rectal foreign body Abdominal pain Plan Keep NPO IV fluids Surgical consult Surgery for today Monitor closely Plan discussed with: Patient Date of Service: Sep 24, 2024 Billing Provider: DONAVON MONROE MD Common Visit Codes: [id number] INP/OBS CARE(HIGH) DONAVON MONROE MD Sep 24, 2024 14:18
[2024-09-24] MEDS ORDERED: MIDAZOLAM HCL 2MG/2ML 2ml VIAL (1mg/ml) ONE (14:46)
[2024-09-24] MEDS ORDERED: fentaNYL CITRATE 100 MCG/2 ML VL ONE (14:46)
[2024-09-24] MEDS ORDERED: PROPOFOL 10 MG/ML 20 ML IV ONE (15:02)
--- NOTE | 2024-09-24 15:16 | DVHOP2 ---
Operative Report [id number] RECTAL FB EXAM UNDER ANESTHESIA REMOVAL RECTAL FB WITH DIGITAL DISIMPACTION NO BLOOD LOSS NO COMPLICATIONS NO DRAINS TRANSFERRED TO RECOVERY ROOM IN A STABLE CONDITION SUGAR STEWARD MD Sep 24, 2024 15:16
--- NOTE | 2024-09-24 15:28 | DVHOP ---
DATE OF SURGERY: 09/24/2024 PREOPERATIVE DIAGNOSIS: Rectal foreign body. POSTOPERATIVE DIAGNOSIS: Rectal foreign body. PROCEDURE: Removal of the rectal foreign body under anesthesia. SURGEON: Darren Sultana MD SURVEILLANCE INSPECTOR: None. ANESTHESIA: IV sedation. DESCRIPTION OF PROCEDURE: The patient was prepped and draped in the usual sterile fashion in the lithotomy position and rectal examination was carried out. The foreign body was palpated and removed with the finger grasping the foreign body and it was a sealed tube or something that was completely removed with no complications. There was no rectal bleeding and no rectal tear. The foreign body was then placed in a container to be shown to the patient after he woke up. Also, a KUB was ordered to confirm no residual foreign body in the rectum. He was then taken back to the recovery room in a stable condition. Darren Sultana MD RG/EKT TID: [id number] RECEIPT: [id number] cc: Aaron Aragon MD
--- NOTE | 2024-09-24 16:03 | DVH ---
Procedure: XY KUB ABDOMEN SINGLE VIEW Study Date and Requested Time: 09/24/2024 03:21 PM Technique: 2 views of the abdomen and pelvis available for evaluation. History: POST OP CONFIRMATION OF REMOVAL OF FOREIGN BODY Comparison: CT CT AB PEL WO CON-NO ORAL OR IV on DOS: 09/22/24 Findings/ Impression: Nonspecific bowel gas pattern. No evidence of bowel obstruction or ileus. Moderate amount of fecal m aterial within the ascending colon. Small amount of fecal material and gas within the remainder of th e colon. No obvious foreign body is visualized. No large intraperitoneal free air. No abnormal calcifications are noted. The lung bases are clear. No evidence of acute bony abnormalit ies.
--- NOTE | 2024-09-24 16:03 | DVH ---
CLINICAL INFORMATION: 49 years old, Male; POST OP CONFIRMATION OF REMOVAL OF FOREIGN BODY. TECHNIQUE: Single AP view of the pelvis was obtained. COMPARISON: CT CT AB PEL WO CON-NO ORAL OR IV on DOS: 09/22/24 FINDINGS: No acute fracture or dislocation. Moderate joint space narrowing in both hips with mild scl erosis. No residual radiopaque foreign body visualized in the pelvis. Linear densities overlying the pelvis are presumably outside the patient. IMPRESSION: No residual radiopaque foreign body visualized in the pelvis. Correlate with clinical findings.
[2024-09-25 05:00] VITALS: BP 117/74; PULSE 66; RESP 18; TEMP 97.3; O2SAT 96
[2024-09-25 08:00] VITALS: PULSE 58; RESP 16; O2SAT 99
[2024-09-25 08:52] VITALS: BP 115/69; PULSE 58; RESP 16; TEMP 97.7; O2SAT 97
[2024-09-25 13:00] VITALS: BP 124/74; PULSE 63; RESP 18; TEMP 97.9; O2SAT 96
--- NOTE | 2024-09-25 13:16 | DVHDS2 ---
Discharge Summary Date of Admission Sep 23, 2024 at 17:18 Date of Discharge: Sep 25, 2024 Labs/Diagnostic Data: Laboratory Results Test 09/24/24 05:51 09/23/24 08:07 White Blood Count 8.8 10^3/uL (4.4-10.8) Red Blood Count 4.58 10^6/uL (4.5-5.90) Hemoglobin 14.9 g/dL (13.5-17.5) Hematocrit 42.4 % (41.0-53.0) Mean Corpuscular Volume 92.5 fL (80.0-100.0) Mean Corpuscular Hemoglobin 32.5 pg (28.0-32.0) Mean Corpuscular Hemoglobin Concent 35.1 g/dL (32.0-36.0) Red Cell Distribution Width 13.0 % (11.8-14.3) Platelet Count 177 10^3/uL (140-450) Mean Platelet Volume 9.1 fL (6.9-10.8) Neutrophils (%) (Auto) 68.4 % (37.0-80.0) Lymphocytes (%) (Auto) 21.1 % (10.0-50.0) Monocytes (%) (Auto) 7.7 % (0.0-12.0) Eosinophils (%) (Auto) 2.4 % (0.0-7.0) Basophils (%) (Auto) 0.4 % (0.0-2.0) Neutrophils # (Auto) 6.0 10 ^3/uL (1.6-8.6) Lymphocytes # (Auto) 1.8 10 ^3/uL (0.4-5.4) Monocytes # (Auto) 0.7 10 ^3/uL (0-1.3) Eosinophils # (Auto) 0.2 10 ^3/uL (0-0.8) Basophils # (Auto) 0 10 ^3/uL (0-0.2) Nucleated Red Blood Cells 0.0 % Sodium Level 141 mmol/L (136-145) Potassium Level 3.7 mmol/L (3.5-5.1) Chloride Level 105 mmol/L (98-107) Carbon Dioxide Level 27 mmol/L (20-31) Anion Gap 9 (5-15) Blood Urea Nitrogen 14 mg/dL (9-23) Creatinine 0.78 mg/dL (0.700-1.30) Glomerular Filtration Rate Calc 110 mL/min (>90) BUN/Creatinine Ratio 17.9 (10.0-20.0) Serum Glucose 85 mg/dL (74-106) Calcium Level 8.9 mg/dL (8.7-10.4) Total Bilirubin 0.9 mg/dL (0.2-1.0) Aspartate Amino Transferase (AST) 15 U/L (13-40) Alanine Aminotransferase (ALT) 15 U/L (7-40) Alkaline Phosphatase 76 U/L (46-116) Total Protein 6.4 g/dL (5.7-8.2) Albumin 4.2 g/dL (3.2-4.8) Prothrombin Time 10.4 sec (9.3-11.8) Prothrombin Time INR 0.98 (0.9-1.15) Activated Partial Thromboplast Time 26.2 SEC (24.5-34.5) Other Laboratory Tests 09/24/24 05:51 Brief Hx & Hospital Course: Final diagnoses: Rectal foreign body S/p removal of rectal foreign body under general anesthesia Abdominal pain 49-year-old male who was admitted because of rectal foreign body that was not possible to remove and therefore he had to undergo general anesthesia and it was removed successfully with no complications The patient is doing well now Advance the diet Discharged home Follow up with his primary care physician as soon as possible Condition at Discharge: Stable Final Diagnosis/Problems List Rectal foreign body Status post removal of rectal foreign body under general anesthesia Abdominal pain Discharge Disposition: Home SNF Discharge Will this Physician continue t: No Discharge Instruct/Medications Diet: Regular Activity: No Restrictions, As Tolerated Follow Up/Referral: PCP as soon as possible Medications: No new medications Discharge Statement: "Patient was advised to return to the ER or call 911 if any headaches, dizziness, shortness of breath, chest pain, abdominal pain, bleeding, fevers, or worsening of medical condition. Patient was counseled about treatment plan, medications, possible side effects, patientverbalized understanding. All questions were answered to the best of my ability. This discharge took greater then 30 minutes in planning, reviewing documentation, counseling the patient, and discussing with other team members." ASSESSMENT ASSESSMENT Assessment Rectal foreign body Status post removal of rectal foreign body under general anesthesia Abdominal pain Date of Service: Sep 25, 2024 Billing Provider: DONAVON MONROE MD Common Visit Codes: 90599-LUH/OBS DISCH DAY >30min DONAVON MONROE MD Sep 25, 2024 13:16
[2024-09-25 13:56] VITALS: BP 124/74; PULSE 63; RESP 18; TEMP 97.9; O2SAT 96
== END 2024-09-25 14:45 | disposition home or self-care (01) | DRG 254 ==
LOC: ER 07:57 → OVERFLOW 17:18 → EAST 23:49
PROVIDERS: ADMIT Internal Medicine Geriatric Medicine; ATTEND Internal Medicine Geriatric Medicine
PROC: 0DCP7ZZ Extirpation of Matter from Rectum, Via Natural or Artificial Opening (ICD-10-PCS; principal; 2024-09-24 14:43)
DX: T18.5XXA Foreign body in anus and rectum, initial encounter (principal); E66.9 Obesity, unspecified; Z87.891 Personal history of nicotine dependence; Z68.29 Body mass index [BMI] 29.0-29.9, adult; W45.8XXA Other foreign body or object entering through skin, initial encounter; Y93.89 Activity, other specified; Y92.89 Other specified places as the place of occurrence of the external cause; Y99.8 Other external cause status
CPT/HCPCS: 36415; 71045; 72170; 74018; 80048; 80053; 85025; 85610; 85730; 86850; 86900; 86901; 96361; 96374; 96375; 99291; 99292; G0378; J1100; J2250; J2405; J2704; J7060